=== PATIENT | female | born 1995 | race Hispanic/Latino ===

== ENCOUNTER 2016-04-25 21:34 | Emergency (ER) | payer OTHER ==
[~2016-04-25] VITALS: Ht 154.9 cm; Wt 68.2 kg
[~2016-04-25 21:34] MED LIST: CYCL5TAB PO; HYDR200T5 PO; LEVO1IUD IY; MYCO500T3 PO
[2016-04-25 21:38] VITALS: BP 129/87; PULSE 99; RESP 16; O2SAT 100
--- NOTE | 2016-04-26 01:00 | ED.REPORT ---
HPI-Sore Throat ONLY HPI/PE done Apr 26, 2016 ED Provider: Dr. Cyrus Bray The patient is a 20 year old female w/ a hx of lupus who presents to the ED due to sore throat onset two days ago. Pt states she had the chills, fever, body aches for several days so she took DayQuil at 1900 and began feeling burning in her mouth. She is conversing well, no swelling of tongue/throat or SOB. She denies dysuria, cough and diarrhea. She reports that her lupus is not currently under control. Pt received a a flu vaccine this year. There is no chance she is . Nursing Notes Stated Complaint: BURNING IN THROAT/POSS MEDICATION INTERACTION Chief Complaint: General Complaint Nursing Notes Reviewed: Yes Allergies: Coded Allergies: No Known Allergies (Verified , 04/25/16) Scheduled Amoxicillin/Clav K 875-125 mg (Augmentin 875-125 mg) 1 Each Tablet 1 TABLET PO BID Hydroxychloroquine Sulfate (Hydroxychloroquine Sulfate) 200 Mg Tablet 200 MG PO BID Mycophenolate Mofetil (Mycophenolate Mofetil) 500 Mg Tablet 500 MG PO BID Prednisone (PredniSONE) 20 Mg Tablet 20 MG PO TID Scheduled PRN Cyclobenzaprine (Cyclobenzaprine) 5 Mg Tablet 5 MG PO HS PRN PRN Spasm General Time Seen by MD: 00:59 Chief Complaint Sore throat Hx Obtained From: Patient Arrived By: Walk-in Onset Occurred: 2 days ago Symptom Duration: Since onset Location: : Soft palate Quality: Painful Severity: Current: Mild Recent Healthcare: No recent doctor visit, No recent hospitalization Similar Sx Previous: No Past Medical History Patient History: Family history: Cardiovascular disease Past Medical History Costochondritis Lupus Arthritis Past Surgical History denies Smoking History Never Smoker Social History Alcohol Use: "Social" Drug Use: Denies drug use Other Social History: Local resident Ambulatory Status Independent Review of Systems Constitutional: Reports: Chills, Fever, Malaise Ears / Nose / Throat: Reports: Sore throat, Denies: Throat swelling, Tongue swelling Respiratory: Denies: Non-productive cough, Shortness of breath GI: Denies: Diarrhea Complete sys rev & neg: except as marked. Female: Denies: Dysuria Physical Exam Initial Vital Signs Vital Signs (First) Date Time Temp Pulse Resp B/P Pulse Ox O2 Delivery O2 Flow Rate FiO2 04/25/16 21:38 36.7 99 16 129/87 100 Room Air Initial VS: Reviewed, Vital signs normal Head / Eyes: Atraumatic, Normocephalic, PERRL Respiratory: Breath sounds normal, Clear to auscultation, No respiratory distress Cardiovascular: Regular rate & rhythm, Heart sounds normal, Intact distal pulses Abdomen / GI: Soft, Non-tender, No guarding, No rebound, No distention Back: No CVA tenderness Extremities: Vascular intact, Neuro intact, No swelling, No tenderness Skin: Warm, Dry, No cyanosis Neurologic: Alert, Oriented, Nonfocal Psychiatric: Mood/affect normal, Behavior normal, Normal thought content General/Constitutional: Awake, Alert, No acute distress, Cooperative generalized pallor ENT: Airway patent, Mucous membranes moist soft palette cellulitis Soft Tissue Neck: Positive: Swelling present... (Anterior) anterior cervical lymphadenopathy Interpretation & Diagnostics Lab Results Interpretation Result Diagram: 04/26/16 0226 04/26/16 0226 Test 04/26/16 02:20 04/26/16 02:26 Hold Pena Top Tube Received (Received) White Blood Count 2.5th/mm3 (3.8-10.1) Red Blood Count 4.37mil/mm3 (3.90-5.20) Hemoglobin 10.8g/dL (12.0-15.6) Hematocrit 32.5% (35.0-46.0) Mean Corpuscular Volume 74.4fL (81-100) Mean Corpuscular Hemoglobin 24.7pg (27.0-35.0) Mean Corpuscular Hemoglobin Concent 33.2% (32.0-37.0) Red Cell Distribution Width 17.1% (12.3-15.4) Platelet Count 240bil/L (150-400) Neutrophils (%) (Auto) 69.1% (40-74) Lymphocytes (%) (Auto) 24.9% (14-46) Monocytes (%) (Auto) 4.0% (4-12) Eosinophils (%) (Auto) 1.6% (0-5) Basophils (%) (Auto) 0% (0-3) Sodium Level 134mEq/L (134-144) Potassium Level 4.1mEq/L (3.5-5.2) Chloride Level 98mEq/L (97-108) Carbon Dioxide Level 20mmol/L (18-29) Blood Urea Nitrogen 14mg/dL (6-20) Creatinine 0.54mg/dL (0.57-1.00) Estimat Glomerular Filtration Rate 202mL/min (>59) Glucose Level 103mg/dL (60-99) Calcium Level 8.3mg/dL (8.5-10.1) Total Bilirubin 0.3mg/dL (0.0-1.2) Aspartate Amino Transf (AST/SGOT) 17U/L (0-50) Alanine Aminotransferase (ALT/SGPT) 7U/L (0-32) Alkaline Phosphatase 48U/L (25-150) C-Reactive Protein 8.4mg/dL (0.0-0.5) Total Protein 6.8g/dL (6.4-8.4) Albumin 3.8g/dL (3.4-5.0) Lab Results Interpretation: Chronic anemia and chronic low WBC Re-Eval/Medical Decision Med Decision/Clinical Course 20-year-old female whose care was turned or change in shift. Influenza negative. Strep test negative. She was treated with steroids and antibiotics for peritonsillar cellulitis. Source of Hx: Old records Re-Evaluation/Progress : Time of Eval: 04:45 Patient Status: Condition improved Re-Evaluation/Progress Note: Care assumed by Dr. Kaiser. Discussed diagnosis and treatment plan. Patient understands and agrees with the plan to be discharged home. Discharge instructions and follow-up discussed. All questions were addressed. Return to the ED warnings given. Counseled Regarding: Diagnosis, Lab results, Need for follow-up, When/why to return to ED Discharge & Departure Primary Impression: Peritonsillar cellulitis Disposition: Home Discharge Condition All VS Reviewed: Yes Condition: Stable Patient Instructions: Tonsillitis (ED) Additional Instructions: Influenza negative. Strep negative. It appears that you have a tonsillitis and peritonsillar cellulitis. Augmentin 875, one pill twice daily until gone, # 14 dispensed. Prednisone 20 mg 3 times a day for 3 days, #9 prescription sent. Recommend no work today. Referrals: [facility] Scribe Attestation Portion of this note were transcribed by Ashely Barahona and Aneta Beckford. I, Dr. Bray and Dr. Kaiser, personally performed the history, physical exam, and medical decision-making: I reviewed and confirmed the accuracy for the information in the transcribed note. Signed by: Austin Mar, 04/26/2016 0300 Signed by: Austin Rendon, 04/26/2016 0455 Cyrus Bray DO Apr 26, 2016 01:00 Ashely Barahona Apr 26, 2016 01:57 Red Kaiser MD Apr 26, 2016 04:42 Aneta Beckford Apr 26, 2016 04:55
[2016-04-26] MEDS ORDERED: HYDROcodone-APAP 5-325 mg Tablet PO ONE (01:55)
[2016-04-26] MEDS ORDERED: 0.9% Sodium Chloride 1,000 ML IV ONE (01:55)
[2016-04-26] MEDS ORDERED: Dexamethasone Inj 10 MG in 0.9% Sodium Chloride-Pha MIX 50 ML IV ONE (01:55)
[2016-04-26 02:35] LABS: BASOPHILS % (AUTO) 0 % (0-3); EOSINOPHILS % (AUTO) 1.6 % (0-5); Mean Corpuscular Hemoglobin 24.7 pg (27.0-35.0); Mean Corpuscular Volume 74.4 fL (81-100); NEUTROPHILS % (AUTO) 69.1 % (40-74); Platelet Count 240 bil/L (150-400)
[2016-04-26 04:26] VITALS: BP 108/72; PULSE 102; RESP 15; O2SAT 98
[2016-04-26] MEDS ORDERED: AMOX-366 PO (04:44)
[2016-04-26] MEDS ORDERED: PRE20 PO (04:44)
[2016-04-26 04:54] VITALS: BP 108/72; PULSE 102; RESP 15; O2SAT 98
== END 2016-04-26 04:55 | disposition home or self-care (01) ==
LOC: SED 21:34
DX: J36 Peritonsillar abscess (principal); B99.8 Other infectious disease; M32.9 Systemic lupus erythematosus, unspecified
CPT/HCPCS: 36415; 80053; 85025; 86140; 87804; 87880; 96361; 96374; 99284; J1100; J7030

== ENCOUNTER 2016-06-28 16:53 | Inpatient (IN) | payer OTHER ==
[~2016-06-28] VITALS: Ht 154.9 cm; Wt 68.4 kg
[~2016-06-28 16:53] MED LIST changes: +AMOX-366 PO; +PRE20 PO
[2016-06-28 16:55] VITALS: BP 131/83; PULSE 118; RESP 16; O2SAT 100
--- NOTE | 2016-06-28 19:03 | ED.REPORT ---
HPI-Abd Pain F Under 40 Date of Service June 28, 2016 ED Provider: Dr. Cyrus Bray The patient is a 20 year old female w/ a hx of lupus who presents to the ED from Urgent Care due to intermittent epigastric pain for the past two weeks. She is not currently having any pain at the ED. UC measured a temp of 102F and she claims a subjective fever for the past 2 days. She denies dysuria, sore throat, vomiting, and diarrhea. She takes folic acid, methotrexate, and prednisone for her lupus. Nursing Notes Stated Complaint: PAIN Chief Complaint: Female Abdominal Pain Nursing Notes Reviewed: Yes Allergies: Coded Allergies: No Known Allergies (Verified , 06/28/16) Scheduled Folic Acid (Folic Acid) 1 Mg Tablet 1 MG PO DAILY Hydroxychloroquine Sulfate (Hydroxychloroquine Sulfate) 200 Mg Tablet 200 MG PO DAILY Meloxicam (Meloxicam) 15 Mg Tablet 15 MG PO DAILY Methotrexate Sodium (Methotrexate) 2.5 Mg Tablet 8 TABLET PO monday take 4 in the morning and 4 in the evening Mycophenolate Mofetil (Mycophenolate Mofetil) 500 Mg Tablet 500 MG PO BID Prednisone (PredniSONE) 5 Mg Tab 5 MG PO DAILY General Time Seen by MD: 19:02 Chief Complaint Abdominal pain Hx Obtained From: Patient Arrived By: Walk-in Sudden in Onset?: Yes Onset Occurred: More than a week ago... (2 weeks) Symptom Duration: Since onset Location: : Abdomen upper Quality: Painful Recent Healthcare: No recent doctor visit, No recent hospitalization Similar Sx Previous: No Past Medical History Patient History: Family history: Cardiovascular disease Past Medical History Costochondritis Lupus Arthritis Past Surgical History denies Smoking History Never Smoker Social History Alcohol Use: "Social" Drug Use: Denies drug use Other Social History: Local resident Ambulatory Status Independent Review of Systems Constitutional: Reports: Fever GI: Reports: Abdominal pain, Denies: Diarrhea, Vomiting Female: Denies: Dysuria Complete sys rev & neg: except as marked. Ears / Nose / Throat: Denies: Sore throat Physical Exam Initial Vital Signs Vital Signs (First) Date Time Temp Pulse Resp B/P Pulse Ox O2 Delivery O2 Flow Rate FiO2 06/28/16 16:55 36.9 118 16 131/83 100 Room Air Initial VS: Reviewed Head / Eyes: Atraumatic, Normocephalic, PERRL ENT: Mucous membranes moist, Conjunctiva normal Neck: Supple, Non-tender Extremities: Vascular intact, Neuro intact, No swelling Skin: Warm, Dry General/Constitutional: Awake, Alert, Cooperative Respiratory / Chest: Atraumatic, Breath sounds NL, Breath sounds = bilat Cardiovascular: Heart rate NL, Regular rhythm, Heart sounds NL Abdomen: No rebound diffuse midline tenderness Back: Atraumatic, Inspection NL Interpretation & Diagnostics Lab Results Interpretation Result Diagram: 06/28/16193906/28/161939 Test 06/28/16 19:40 06/28/16 21:23 06/29/16 00:45 White Blood Count 4.8th/mm3 (3.8-10.1) Red Blood Count 4.41mil/mm3 (3.90-5.20) Hemoglobin 12.3g/dL (12.0-15.6) Hematocrit 35.4% (35.0-46.0) Mean Corpuscular Volume 80.3fL (81-100) Mean Corpuscular Hemoglobin 27.9pg (27.0-35.0) Mean Corpuscular Hemoglobin Concent 34.7% (32.0-37.0) Red Cell Distribution Width 16.9% (12.3-15.4) Platelet Count 216bil/L (150-400) Neutrophils (%) (Auto) 82.9% (40-74) Lymphocytes (%) (Auto) 12.3% (14-46) Monocytes (%) (Auto) 4.2% (4-12) Eosinophils (%) (Auto) 0.2% (0-5) Basophils (%) (Auto) 0.2% (0-3) Sodium Level 136mEq/L (134-144) Potassium Level 4.2mEq/L (3.5-5.2) Chloride Level 98mEq/L (97-108) Carbon Dioxide Level 20mmol/L (18-29) Blood Urea Nitrogen 13mg/dL (6-20) Creatinine 0.55mg/dL (0.57-1.00) Estimat Glomerular Filtration Rate 198mL/min (>59) Glucose Level 73mg/dL (60-99) Lactic Acid Level 1.2mmol/L (0.4-2.0) Calcium Level 8.8mg/dL (8.5-10.1) Magnesium Level 1.8mg/dL (1.6-2.6) Total Bilirubin 0.6mg/dL (0.0-1.2) Aspartate Amino Transf (AST/SGOT) 30U/L (0-50) Alanine Aminotransferase (ALT/SGPT) 23U/L (0-32) Alkaline Phosphatase 58U/L (25-150) Total Protein 7.2g/dL (6.4-8.4) Albumin 3.9g/dL (3.4-5.0) Lipase 19U/L (13-60) HCG Beta Subunit < 0.500mIU/mL Hold Pena Top Tube Received (Received) Urine Color Yellow (YELLOW) Urine Appearance Clear (CLEAR,HAZY) Urine pH 5.5 (5.0-8.0) Urine Specific [place] 1.025 (1.003-1.035) Urine Protein Negativemg/dL (NEG,TRACE) Urine Glucose (UA) Negativemg/dL (NEGATIVE) Urine Ketones 15mg/dL (NEGATIVE) Urine Occult Blood Negative (NEGATIVE) Urine Nitrite Negative (NEGATIVE) Urine Bilirubin Negative (NEGATIVE) Urine Urobilinogen Normalmg/dL (NORMAL) Urine Leukocyte Esterase Negative (NEGATIVE) Urine RBC 0-2/hpf (0-2) Urine WBC 0-5/hpf (0-5) Urine Epithelial Cells Few/hpf (NONE-MOD) Urine Crystals None seen (NONE SEEN) Urine Bacteria Few/hpf (NONE-FEW) Urine Hyaline Casts None/lpf (NONE) Urine Granular Casts None seen (NONE SEEN) Urine Waxy Casts None seen (NONE SEEN) Urine Red Blood Cell Casts None seen (NONE SEEN) Urine White Blood Cell Casts None seen (NONE SEEN) Urine Mucus Present (None Seen) Urine Trichomonas None seen (NONE SEEN) Urine Yeast None (NONE SEEN) Urinalysis Comment None Urine Culture Reflexed Not indicated Lab Results Interpretation: negative urine Re-Eval/Medical Decision Re-Evaluation/Progress #1: Time of Eval: 19:46 Re-Evaluation/Progress Note: Plan for fluids, pain meds, and catscan. Re-Evaluation/Progress #2: Time of Eval: 23:30 Re-Evaluation/Progress Note: Pt rechecked. Fever is 39.5C. Pt is tachycardic and has midline tenderness. Plan for admission. Consultation #1: Referral / Consult Name: Willi Soriano MD Consulted With: Hospitalist Call Returned at: 23:30 Community Resource Consultant: Agrees with eval, Agrees with plan Note: Case discussed. Consultation #2: Referral / Consult Name: Donte Sanchez MD Consulted With: Hospitalist Call Returned at: 23:41 Community Resource Consultant: Agrees with eval, Agrees with plan Note: Case discussed. Counseled Regarding: Diagnosis, Lab results, Need for admission Discharge & Departure Primary Impression: Abdominal mass Abdominal location: epigastric Qualified Code: R19.06 - Epigastric swelling , mass or lump Additional Impression: Fever Fever type: unspecified Qualified Code: R50.9 - Fever, unspecified Disposition: ADMITTED TO HOSPITAL Discharge Condition All VS Reviewed: Yes Condition: Stable Referrals: Helga Cleaning (PCP) Rachelibbassam Attestation Portion of this note were transcribed by Ashely Barahona. I, Dr. Cyrus Bray, personally performed the history, physical exam, and medical decision-making: I reviewed and confirmed the accuracy for the information in the transcribed note. Signed by: antwon Mar, 06/29/16 0300 copies to: Helga Cleaning Todd P DO June 28, 2016 19:03 Ashely Barahona June 28, 2016 19:50
[2016-06-28] MEDS ORDERED: 0.9% Sodium Chloride 1,000 ML IV ONE (19:50)
[2016-06-28] MEDS ORDERED: Ondansetron 2 mg/mL 2 mL Inj IVPUSH PRN (19:50)
[2016-06-28 19:56] LABS: BASOPHILS % (AUTO) 0.2 % (0-3); EOSINOPHILS % (AUTO) 0.2 % (0-5); MONOCYTES % (AUTO) 4.2 % (4-12); Mean Corpuscular Hemoglobin 27.9 pg (27.0-35.0); Mean Corpuscular Volume 80.3 fL (81-100); NEUTROPHILS % (AUTO) 82.9 % (40-74); Platelet Count 216 bil/L (150-400)
[2016-06-28] MEDS: HYDROmorphone 0.5 mg/0.5 mL iSecure Syringe IVPUSH PRN (20:35)
[2016-06-28 20:40] LABS: Magnesium 1.8 mg/dL (1.6-2.6)
[2016-06-28 21:40] VITALS: BP 117/81; PULSE 111; RESP 16; O2SAT 100
[2016-06-28 21:40] LABS: APPEARANCE,URINE CLEAR (CLEAR,HAZY); COLOR,URINE YELLOW (YELLOW); OCCULT BLOOD,URINE NEGATIVE (NEGATIVE); PH,URINE 5.5 (5.0-8.0); UROBILINOGEN,URINE NORMAL (NORMAL)
[2016-06-28] MEDS ORDERED: Piperacillin-Tazo 3.375 Gm Inj 3.375 GM in Dextrose 5% Minibag Plus 50 ML IV ONE (23:10)
[2016-06-29] MEDS: 0.9% Sodium Chloride 1,000 ML IV SCH ×2 (00:34→12:22)
[2016-06-29] MEDS ORDERED: Alum-Mag Hydrox-Simeth 30 mL Suspension PO PRN (00:35)
[2016-06-29] MEDS ORDERED: Polyethylene Glycol (PEG) 17 Gm Powder PO PRN (00:35)
--- NOTE | 2016-06-29 00:55 | PCM.HPMED ---
Subjective Date of Service June 29, 2016 Primary Provider: Admitting Physician: Primary Care Physician: Helga Cleaning Attending Physician: Admit Status: From the Emergency Department, Full Admit, Remote Telemetry Chief Complaint: Abdominal pain History of Present Illness: Dede Garza is a 20 year old female with Lupus, Fibromyalgia and Depression who presents to [facility] emergency department from Urgent Care due to intermittent epigastric pain for the past two weeks. Patient reported the epigastric pain (with extension to right and left upper quadrant area) severity is moderate 3/10 intensity, intermittent and non radiating. Associated symptoms includes fever on Monday, yesterday and 102F ( at Urgent Care clinic), back pain (middle of her back hurts but states she believes is from sitting all day at her job) and some nausea. No diarrhea or vomiting. Denies vaginal discharge, vaginal bleeding, dysuria, urinary frequency. She denies any weight loss. Patient states she saw her family doctor on 06/21/2016 and an outpatient ultrasound is being ordered however it has not been scheduled yet. She denies dysuria, sore throat, vomiting, and diarrhea. She takes folic acid, methotrexate, prednisone for her lupus and has been tolerating this medications for a long time No family history of cancer or pancreatis disease Case discussed with Dr Bray, CT finds pancreatic mass. He discussed the case with Dr Soriano and Dr Barton. Plan to admit Review of Systems: Pertinent positives as noted in HPI. All other systems were reviewed and are negative Allergies Coded Allergies: No Known Allergies (Verified , 06/28/16) Home Medications From [facility], not yet confirmed Dede Garza [id number] 1995 06/28/2016 03:40 PM 02/24 folic acid 1 mg tablet take 1 tablet by oral route every day hydroxychloroquine 200 mg tablet take 2 tablet by oral route every day methotrexate sodium 2.5 mg tablet take 8 pills orally (4 in the am and 4 in the pm) one day a week Mirena 20 mcg/24 hr (5 years) intrauterine device Mobic Oral Tablet 15 MG TAKE ONE TABLET BY MOUTH ONE TIME DAILY -DO NOT TAKE WITH OTHER NSAIDS Myfortic 360 mg tablet,delayed release take 2 tablet by oral route every day on an empty stomach prednisone 2.5 mg tablet take 2 tablets by oral route every day PMH Systemic Lupus Erythematosus. Diagnosed at [facility] age 9. Complicated with joint and muscular pain and Shrinking lung syndrome, Raynaud's and recurrent pericarditis Fibromyalgia Paronychia of fingers of both hands Cellulitis of left finger Depression History of Shingles . Surgical History No surgery reported Family History Aunt has Lupus Family history of Diabetes and Heart disease Social History Hx Alcohol Use: No Hx Substance Use: No Hx Tobacco Use: No Smoking Status: Never Smoker Living Arrangement: with Family Exam Vital Signs Vital Sign - Last Date Time Temp Pulse Resp B/P Pulse Ox O2 Delivery O2 Flow Rate FiO2 06/29/16 00:42 39.5 06/28/16 21:40 111 16 117/81 100 Room Air Exam General: Alert, Oriented X3, Cooperative, No acute Distress Eyes: PERRLA, Scleral Anicteric Mouth: Mouth Normal, Mucous Membranes Moist/[place] Neck: Supple, no Thyromegaly, trachea central. Chest & Lungs: Clear to auscultation & percussion, No adventitious breath sounds, no crackles, no wheeze Cardiovascular: Normal S1, Normal S2, No Murmurs/Rubs/Gallops, Regular Rate/ Rhythm, Murmur, Other (No JVD, no peripheral edema) Pulses: Radial (present and equal), Dorsalis Pedi (present and equal) Abdomen: Soft, mild epigastric tenderness, no rebound, Non-distended, Normoactive bowel tones. Musculoskeletal: Unremarkable. Normal range of motion, no swollen or erythematous joints Extremities: No edema, no cyanosis, no clubbing. Skin: No rashes. Warm and dry, no erythematous areas Neurological: Grossly neurologically intact, has generalized weakness, Normal Speech, Sensation Intact Lymphatic: Lymph nodes Cervical and Axillary not palpable. Lab and Diagnostics Labs Laboratory Tests Test 06/28/16 19:40 06/28/16 21:23 White Blood Count 4.8th/mm3 (3.8-10.1) Red Blood Count 4.41mil/mm3 (3.90-5.20) Hemoglobin 12.3g/dL (12.0-15.6) Hematocrit 35.4% (35.0-46.0) Mean Corpuscular Volume 80.3fL (81-100) Mean Corpuscular Hemoglobin 27.9pg (27.0-35.0) Mean Corpuscular Hemoglobin Concent 34.7% (32.0-37.0) Red Cell Distribution Width 16.9% (12.3-15.4) Platelet Count 216bil/L (150-400) Neutrophils (%) (Auto) 82.9% (40-74) Lymphocytes (%) (Auto) 12.3% (14-46) Monocytes (%) (Auto) 4.2% (4-12) Eosinophils (%) (Auto) 0.2% (0-5) Basophils (%) (Auto) 0.2% (0-3) Sodium Level 136mEq/L (134-144) Potassium Level 4.2mEq/L (3.5-5.2) Chloride Level 98mEq/L (97-108) Carbon Dioxide Level 20mmol/L (18-29) Blood Urea Nitrogen 13mg/dL (6-20) Creatinine 0.55mg/dL (0.57-1.00) Estimat Glomerular Filtration Rate 198mL/min (>59) Glucose Level 73mg/dL (60-99) Lactic Acid Level 1.2mmol/L (0.4-2.0) Calcium Level 8.8mg/dL (8.5-10.1) Magnesium Level 1.8mg/dL (1.6-2.6) Total Bilirubin 0.6mg/dL (0.0-1.2) Aspartate Amino Transf (AST/SGOT) 30U/L (0-50) Alanine Aminotransferase (ALT/SGPT) 23U/L (0-32) Alkaline Phosphatase 58U/L (25-150) Total Protein 7.2g/dL (6.4-8.4) Albumin 3.9g/dL (3.4-5.0) Lipase 19U/L (13-60) HCG Beta Subunit < 0.500mIU/mL Hold Pena Top Tube Received (Received) Urine Color Yellow (YELLOW) Urine Appearance Clear (CLEAR,HAZY) Urine pH 5.5 (5.0-8.0) Urine Specific [place] 1.025 (1.003-1.035) Urine Protein Negativemg/dL (NEG,TRACE) Urine Glucose (UA) Negativemg/dL (NEGATIVE) Urine Ketones 15mg/dL (NEGATIVE) Urine Occult Blood Negative (NEGATIVE) Urine Nitrite Negative (NEGATIVE) Urine Bilirubin Negative (NEGATIVE) Urine Urobilinogen Normalmg/dL (NORMAL) Urine Leukocyte Esterase Negative (NEGATIVE) Urine RBC 0-2/hpf (0-2) Urine WBC 0-5/hpf (0-5) Urine Epithelial Cells Few/hpf (NONE-MOD) Urine Crystals None seen (NONE SEEN) Urine Bacteria Few/hpf (NONE-FEW) Urine Hyaline Casts None/lpf (NONE) Urine Granular Casts None seen (NONE SEEN) Urine Waxy Casts None seen (NONE SEEN) Urine Red Blood Cell Casts None seen (NONE SEEN) Urine White Blood Cell Casts None seen (NONE SEEN) Urine Mucus Present (None Seen) Urine Trichomonas None seen (NONE SEEN) Urine Yeast None (NONE SEEN) Urinalysis Comment None Urine Culture Reflexed Not indicated Microbiology 06/28/16 Blood Culture, Received Pending Result Diagram: 06/28/16193906/28/161939 X-Rays, CTs and MRIs CT ABDOMEN AND PELVIS WITH CONTRAST 06/29 IMPRESSION: 1. Mass in the mesenteric root measuring 3.6 x 5.1 x 4.6 cm. Differential diagnoses include a large irish mass, carcinoid tumor, and less likely tumor involving the uncinate process of pancreas. 2. Retroperitoneal and mesenteric lymphadenopathy. This finding is nonspecific and may be secondary to infectious, inflammatory or neoplastic etiology. Recommend clinical correlation and follow up. Dictated by: Alon Lane M.D. on 06/29/2016 at 7:23 Transcribed by: LISA on 06/29/2016 at 7:26 Approved by: Alon Lane M.D. on 06/29/2016 at 13:11 Assessment & Plan Dede Garza is a 20 year old female with Lupus, Fibromyalgia and Depression who presents to [facility] emergency department from Urgent Care due to intermittent epigastric pain 1. Acute abdominal pain. Present on admission CT showing Mass in the mesenteric root measuring 3.6 x 5.1 x 4.6 cm. Etiology unclear. No colitis noted. Unclear if this is related to Lupus. Differential diagnoses include a large irish mass, carcinoid tumor, and less likely tumor involving the uncinate process of pancreas. - nothing by mouth - IV fluids resuscitations - empiric antibiotics with Zosyn IV - Ultrasound biopsy recommended by surgery, Dr Barton notified - Dr Soriano will consult from surgery 2 Systemic Lupus Erythematosus Presumed stable with no current joint or muscle pain - will continue Prednisone 5 mg daily, no indications for Stress dose steroids as chronic steroid dose is small - continue Folic acid 1 mg daily - holding all Autoimmune medications (Hydroxychloroquine and Methotrexate) till infections is stabilized - will use NSAID for pain control 3. Fibromyalgia and Depression Presumed stable - Acetaminophen as needed for mild pain/fever/headache - Bowel regimen as needed - Antiemetic as needed Patient admitted under inpatient status with expected length of stay > 2 midnights for severity of present symptoms, complexities of treatment plan and risk for adverse event . Resuscitation Status: CPR: Attempt Resuscitation Donte Sanchez MD June 29, 2016 00:55
[2016-06-29] MEDS: HYDROmorphone 0.5 mg/0.5 mL iSecure Syringe IVPUSH PRN ×2 (02:19→14:09)
[2016-06-29 03:15] VITALS: BP 113/70; PULSE 115; RESP 20; O2SAT 98
--- NOTE | 2016-06-29 03:23 | NUR ---
ADMIT Patient with continuing abdominal pain and fever, decreased with dilaudid and tylenol. Awaiting room on regular med-surg floor. Oriented to her current room and call light. Sleeping comfortably at this time.
[2016-06-29] MEDS: Ondansetron 2 mg/mL 2 mL Inj IVPUSH PRN ×2 (05:35→14:09)
[2016-06-29] MEDS ORDERED: PRD5T PO (07:06)
[2016-06-29] MEDS ORDERED: FOLI1TAB18 PO (07:07)
[2016-06-29] MEDS ORDERED: MELO-253 PO (07:07)
[2016-06-29] MEDS ORDERED: METH2.5T PO (07:08)
--- NOTE | 2016-06-29 07:26 | DRSVH ---
PROCEDURE: CT ABDOMEN AND PELVIS WITH CONTRAST ([id number]) INDICATIONS: 20 year-old woman with midline abdominal pain, lupus and fever. TECHNIQUE: After the administration of intravenous contrast, 5 mm thick sections acquired from the diaphragm to the symphysis. 5 mm coronal and sagittal reformats were acquired. For radiation dose reduction, the following was used: automated exposure control, adjustment of mA and/or kV according to patient siz e. COMPARISON: None. FINDINGS: Image quality: Excellent. ABDOMEN: Lung bases: Lung bases are clear. Heart size is normal. Solid organs: There is a mass within the mesenteric root measuring 3.6 x 5.1 x 4.6 cm. The mass is j ust below the uncinate process of pancreas. Central lucency within the mass suggesting necrosis. Liver and spleen are normal in size and enhancement. Gallbladder is normal. Biliary system is non d ilated. Pancreas enhances normally. No adrenal nodules. Kidneys demonstrate normal size and enhanc ement, without hydronephrosis. Peritoneum and bowel: Bowel loops demonstrate normal wall thickness and caliber. No free fluid or a ir. Nodes and vessels: There are 2 enlarged retroperitoneal lymph nodes measuring up to 1.5 cm. Mildly en larged mesenteric lymph nodes are noted, measuring up to 1 cm. Aorta and inferior vena cava are norm al in size. Miscellaneous: No ventral hernias. PELVIS: Genitourinary: Bladder wall thickness is normal. There is an IUD in uterus. No pathological free fl uid. Miscellaneous: No inguinal hernias or adenopathy. Bones: No suspicious bony lesions. No vertebral body compression fractures. IMPRESSION: 1. Mass in the mesenteric root measuring 3.6 x 5.1 x 4.6 cm. Differential diagnoses include a large n odal mass, carcinoid tumor, and less likely tumor involving the uncinate process of pancreas. 2. Retroperitoneal and mesenteric lymphadenopathy. This finding is nonspecific and may be secondary to infectious, inflammatory or neoplastic etiology. Recommend clinical correlation and follow up. Dictated by: Alon Lane M.D. on 06/29/2016 at 7:23 Transcribed by: LISA on 06/29/2016 at 7:26 Approved by: Alon Lane M.D. on 06/29/2016 at 13:11
[2016-06-29 07:57] VITALS: BP 112/66; PULSE 79; RESP 16; O2SAT 100
[2016-06-29] MEDS: Piperacillin-Tazo 3.375 Gm Inj 3.375 GM in Dextrose 5% Minibag Plus 50 ML IV SCH ×2 (08:03→15:59)
[2016-06-29] MEDS: Heparin 5,000 Unit/mL Inj SUBQ SCH ×2 (08:04→16:30)
--- NOTE | 2016-06-29 09:21 | NUR ---
Social Work Note - Initial assessment Dede Garza is a 20 yr old admitted for mesenteric abdominal mass with Fever. EMR reviewed: Pt has [employer] and [employer] insurance. Her PCP is Helga JUNG. Pt lives at home with her family in [place]. She struggles with Lupus and Fibromyalgia. She is independent at baseline, no needs anticipated. FRONT CLERK will follow if needs arise. Plan: Home with family in [facility]. SABAS Calvillo
[2016-06-29 11:47] VITALS: BP 119/80; PULSE 87; RESP 16; O2SAT 100
--- NOTE | 2016-06-29 11:49 | PCM.CHPMED ---
Subjective Date of Service: June 29, 2016 Primary Physician: Admitting Physician: Donte Sanchez MD Primary Care Physician: Helga Cleaning Attending Physician: Donte Sanchez MD Chief Complaint: Chief Complaint: Abdominal pain History of Present Illness: 20-year-old female with lupus, fibromyalgia, and pression on hydroxychloroquine , methotrexate, mycophenolate, and prednisone presented due to ongoing abdominal pain in the epigastrium with extension to the right and left upper quadrants. Patient states that it is 3 out of 10 intensity but has resolved since first presentation, is intermittent, and does not radiate. Patient states it starts more on her left upper quadrant and spread to her epigastrium to the right with epigastrium been most painful. Patient states on Monday and Monday she had a fever up to 102 measured at urgent care, as well as nausea with no vomiting. Patient states now that her nausea is resolved. States that pain is exacerbated or remitted with oral intake. Denies any change in bowel habits and denies melena or hematochezia, as well as hematemesis. Patient denies any contact with tuberculosis, denies night sweats or unexpected/ unexplained weight loss. Other signs of systemic infection are also absent. Has been no change in her recent immunosuppression medications. In the ED patient underwent CT with contrast which identified a mass likely in the pancreatic head is approximately 5 cm in width, with some possible chronic inflammatory changes in the pancreas. Patient was started on Zosyn due to fevers and questionable pancreatic head abscess. Review of Systems: See history of present illness PMH Past Medical History Lupus Depression Hx Any Other Health Problems?: NoHx Diabetes: No Surgical History None reported Home Medications Folic acid Hydroxychloroquine 200 mg tablets, take 2 daily Methotrexate 2.5 mg tablets, 4 pills in the a.m. and p.m. Abigail Mobic Myfortic 360 mg tablet Prednisone 2.5 mg Allergies: Coded Allergies: No Known Allergies (Verified , 06/28/16) Family History Family History Aunt has Lupus Family history of Diabetes and Heart disease No history of cancer Social History Hx Alcohol Use: NoHx Substance Use: NoHx Tobacco Use: No Smoking Status: Never Smoker Living Arrangement: with Family Exam Vital Signs Vital Sign - Last Date Time Temp Pulse Resp B/P Pulse Ox O2 Delivery O2 Flow Rate FiO2 06/29/16 07:57 36.9 79 16 112/66 100 Room Air Additional Information: General: Patient awake alert in no acute distress HEENT: His membranes moist, oropharynx clear, no JVD, supple Cardio: Regular rate and rhythm Respiratory: CTA bilaterally Abdomen: Mildly obese, nondistended, none tender except mild tenderness in the epigastrium, positive bowel sounds no masses palpated Extremities: No edema, moving all 4 extremities, pulses intact Psych: Appropriate mood and appears mildly depressed Neuro: Grossly intact Skin: No rashes Lab and Diagnostics Result Diagram: 06/28/16193906/28/161939 Assessment & Plan Assessment Problem list Intra-abdominal mass, likely in the uncinate process of the pancreas Intermittent abdominal pain Lupus Depression Assessment/plan 18-year-old female with lupus on multiple immunosuppressants who presented with abdominal pain and was found have a 5 cm mass in what looks like the uncinate process of the pancreas with surrounding lymphadenopathy in the mesenteric and retroperitoneal lymph nodes. Patient's nausea has remitted since arrival and her pain is now controlled. This mass raises concerns due to ongoing fevers and chills that this could possibly be a pancreatic abscess. However, on review of imaging with radiology is still difficult to classify the mass. Concern for pancreatic cancer, lymphoma, or a number of other etiologies, although most of these would be less likely due to patient's age.. Currently we feel the patient will need an endoscopic ultrasound and current discussion with interventional radiology on the ability to obtain a biopsy core sample of the mass. We are also concerned that this patient may need a higher level of care and decision will be made appropriately by the end of the day and whether this patient can be transferred. In the meantime we will continue to follow along with you. Thank you for allowing us to participate in the care of this interesting patient. Problems: Resuscitation Status: CPR: Attempt Resuscitation Attending Statement Patient seen and examined. Agree with assessment and plan as described by Dr Upton. Large mesenteric mass near uncinate process. Fevers overnight. IgG subclass 4 pending. I discussed case with Dr Sam Levine at [facility] with reference to EUS for diagnostic and therapeutic purposes. He agreed that transfer was appropriate and patient is to go this afternoon. In the interim, agree with continued antibiotic. Rene Upton DO June 29, 2016 11:49 Arik Barton MD June 29, 2016 15:53
--- NOTE | 2016-06-29 12:45 | DRSVH ---
PROCEDURE: X-RAY CHEST ONE VIEW, PORTABLE ([id number]) INDICATIONS: fever TECHNIQUE: One view of the chest was acquired. COMPARISON: [facility], CR, CHEST 2VW, 01/21/2014, 14:41. [facility], CR, CHEST 1VW (PORTABLE), 04/06/2008, 14:32. FINDINGS: Surgical changes and devices: None. Lungs and pleura: No pleural effusions or pneumothorax. Lungs are clear. Mediastinum: Mediastinal contours appear normal. Heart size is normal. Bones and chest wall: No suspicious bony lesions. Overlying soft tissues appear unremarkable. IMPRESSION: No acute cardiopulmonary disease. Dictated by: Sawyer PHAN Interpreted: Dorothy Begum MD on 06/29/2016 at 12:45 Transcribed by: INDIA on 06/29/2016 at 12:45 Approved by: Dorothy Begum M.D. on 06/29/2016 at 16:48
--- NOTE | 2016-06-29 13:49 | PCM.DIMED ---
Discharge Instructions Date of Service June 29, 2016 Dates of Hospitalization June 29, 2016 at 00:47 Discharge Diagnosis Discharge Diagnosis 1. Acute abdominal pain due to suspected mesenteric collection. Present on admission 2 Systemic Lupus Erythematosus 3. Fibromyalgia and Depression Test Results CT IMPRESSION: 1. Mass in the mesenteric root measuring 3.6 x 5.1 x 4.6 cm. Differential diagnoses include a large irish mass, carcinoid tumor, and less likely tumor involving the uncinate process of pancreas. 2. Retroperitoneal and mesenteric lymphadenopathy. This finding is nonspecific and may be secondary to infectious, inflammatory or neoplastic etiology. Recommend clinical correlation and follow up. Dictated by: Alon Lane M.D. on 06/29/2016 at 7:23 Diet Other (clear liquid diet for now) Activity Limited until seen by PCP Call your provider Other (transferred to ) Patient Instructions You were hospitalized due to abdominal pain and fever. Workup reveals mesenteric mass versus collection. You are being transferred to [facility] for endoscopic ultrasound and possible drainage versus biopsy based on findings. Please follow-up with PCP 1 week after discharge from hospital. Follow-up Provider: Salima Cleaning Follow-up with PCP in: 1 week Donnie Andrade MD June 29, 2016 13:49
--- NOTE | 2016-06-29 14:02 | NUR ---
Social Work-discharge: Data:EMR Reviewed. Pt is on day 1 of hospitalization for mesenteric abd mass per h&P. Pt is medically stable for discharge. Pt resides at home with family, no discharge needs identified. Family to provide transport home. All updated and agreeable to plan. Assessment:Pt who is independent at baseline. Plan:Pt to discharge home today via POV. No discharge needs identified. All updated and agreeable to plan. DEJUAN Plascencia
[2016-06-29 15:36] VITALS: BP 120/75; PULSE 114; RESP 18; O2SAT 99
--- NOTE | 2016-06-29 16:47 | NUR ---
Discharge pt. dc'd to [facility] via [facility] at 1640 this afternoon. Pt. febrile 39.3; given 650 mg po tylenol; emt's to follow up; tyson receiving RN at [facility] notified. Pt. c/o increased abd pain and nausea; prn dilaudid and zofran given with relief. belongings with pt.
--- NOTE | 2016-06-29 17:24 | PCM.DC.MED ---
Discharge Summary Date of Service June 29, 2016 Dates of Hospitalization Date of Hospital Admission June 29, 2016 at 00:47 Date of Discharge: June 29, 2016 Providers: Admitting Physician: Donte Sanchez MD Primary Care Physician: Helga Cleaning Attending Physician: Donte Sanchez MD Diagnosis at Time of Discharge Diagnosis at Time of Discharge 1. Acute abdominal pain due to suspected mesenteric collection. Present on admission 2 Systemic Lupus Erythematosus 3. Fibromyalgia and Depression Consultations GI Dr Barton Procedures ECG 12 Lead PROCEDURE: CT ABDOMEN AND PELVIS WITH CONTRAST ([id number]) INDICATIONS: 20 year-old woman with midline abdominal pain, lupus and fever. TECHNIQUE: After the administration of intravenous contrast, 5 mm thick sections acquired from the diaphragm to the symphysis. 5 mm coronal and sagittal reformats were acquired. For radiation dose reduction, the following was used: automated exposure control, adjustment of mA and/or kV according to patient size. COMPARISON: None. FINDINGS: Image quality: Excellent. ABDOMEN: Lung bases: Lung bases are clear. Heart size is normal. Solid organs: There is a mass within the mesenteric root measuring 3.6 x 5.1 x 4.6 cm. The mass is just below the uncinate process of pancreas. Central lucency within the mass suggesting necrosis. Liver and spleen are normal in size and enhancement. Gallbladder is normal. Biliary system is non dilated. Pancreas enhances normally. No adrenal nodules. Kidneys demonstrate normal size and enhancement, without hydronephrosis. Peritoneum and bowel: Bowel loops demonstrate normal wall thickness and caliber. No free fluid or air. Nodes and vessels: There are 2 enlarged retroperitoneal lymph nodes measuring up to 1.5 cm. Mildly enlarged mesenteric lymph nodes are noted, measuring up to 1 cm. Aorta and inferior vena cava are normal in size. Miscellaneous: No ventral hernias. PELVIS: Genitourinary: Bladder wall thickness is normal. There is an IUD in uterus. No pathological free fluid. Miscellaneous: No inguinal hernias or adenopathy. Bones: No suspicious bony lesions. No vertebral body compression fractures. IMPRESSION: 1. Mass in the mesenteric root measuring 3.6 x 5.1 x 4.6 cm. Differential diagnoses include a large irish mass, carcinoid tumor, and less likely tumor involving the uncinate process of pancreas. 2. Retroperitoneal and mesenteric lymphadenopathy. This finding is nonspecific and may be secondary to infectious, inflammatory or neoplastic etiology. Recommend clinical correlation and follow up. Dictated by: Alon Lane M.D. on 06/29/2016 at 7:23 Brief History per HPI 20-year-old female with lupus, fibromyalgia, and pression on hydroxychloroquine , methotrexate, mycophenolate, and prednisone presented due to ongoing abdominal pain in the epigastrium with extension to the right and left upper quadrants. Patient states that it is 3 out of 10 intensity but has resolved since first presentation, is intermittent, and does not radiate. Patient states it starts more on her left upper quadrant and spread to her epigastrium to the right with epigastrium been most painful. Patient states on Monday and Monday she had a fever up to 102 measured at urgent care, as well as nausea with no vomiting. Patient states now that her nausea is resolved. States that pain is exacerbated or remitted with oral intake. Denies any change in bowel habits and denies melena or hematochezia, as well as hematemesis. Patient denies any contact with tuberculosis, denies night sweats or unexpected/ unexplained weight loss. Other signs of systemic infection are also absent. Has been no change in her recent immunosuppression medications. In the ED patient underwent CT with contrast which identified a mass likely in the pancreatic head is approximately 5 cm in width, with some possible chronic inflammatory changes in the pancreas. Patient was started on Zosyn due to fevers and questionable pancreatic head abscess. Hospital Course Dede Garza is a 20 year old female with Lupus, Fibromyalgia and Depression who presents to [facility] emergency department from Urgent Care due to intermittent epigastric pain 1. Acute abdominal pain and fever due to suspected mesenteric collection. Present on admission CT showing pancreatis mass versus mesenteric collection. Etiology unclear. No colitis noted. Unclear if this is related to Lupus - nothing by mouth - IV fluids resuscitations - empiric antibiotics with Zosyn IV - Ultrasound biopsy recommended by surgery, Dr Barton [facility] Patient will benefit from transfer to [facility] for endoscopic ultrasound and possible aspiration versus biopsy based on finding -Signed out to accepting hospitalist Dr. Gama Mcnair. Will transfer when bed is available 2 Systemic Lupus Erythematosus Presumed stable with no current joint or muscle pain - will continue Prednisone 5 mg daily, no indications for Stress dose steroids as chronic steroid dose is small - continue Folic acid 1 mg daily - held all Autoimmune medications (Hydroxychloroquine and Methotrexate) till infections is stabilized - will use NSAID for pain control 3. Fibromyalgia and Depression Presumed stable - Acetaminophen as needed for mild pain/fever/headache - Bowel regimen as needed - Antiemetic as needed Disposition: Transfer to [facility] for endoscopic ultrasound Exam Vital Signs (Last) Date Time Temp Pulse Resp B/P Pulse Ox O2 Delivery O2 Flow Rate FiO2 06/29/16 15:36 39.3 114 18 120/75 99 Room Air Exam General: Alert, Oriented X3, Cooperative, No acute Distress Eyes: PERRLA, Scleral Anicteric Mouth: Mouth Normal, Mucous Membranes Moist/[place] Neck: Supple, no Thyromegaly, trachea central. Chest & Lungs: Clear to auscultation & percussion, No adventitious breath sounds, no crackles, no wheeze Cardiovascular: Normal S1, Normal S2, No Murmurs/Rubs/Gallops, Regular Rate/ Rhythm, Murmur, Other (No JVD, no peripheral edema) Pulses: Radial (present and equal), Dorsalis Pedi (present and equal) Abdomen: Soft, mild epigastric tenderness, no rebound, Non-distended, Normoactive bowel tones. Musculoskeletal: Unremarkable. Normal range of motion, no swollen or erythematous joints Extremities: No edema, no cyanosis, no clubbing. Skin: No rashes. Warm and dry, no erythematous areas Neurological: Grossly neurologically intact, has generalized weakness, Normal Speech, Sensation Intact Lymphatic: Lymph nodes Cervical and Axillary not palpable. Test 06/28/16 19:40 06/28/16 21:23 06/29/16 00:45 06/29/16 12:56 White Blood Count 4.8th/mm3 (3.8-10.1) Red Blood Count 4.41mil/mm3 (3.90-5.20) Hemoglobin 12.3g/dL (12.0-15.6) Hematocrit 35.4% (35.0-46.0) Mean Corpuscular Volume 80.3fL (81-100) Mean Corpuscular Hemoglobin 27.9pg (27.0-35.0) Mean Corpuscular Hemoglobin Concent 34.7% (32.0-37.0) Red Cell Distribution Width 16.9% (12.3-15.4) Platelet Count 216bil/L (150-400) Neutrophils (%) (Auto) 82.9% (40-74) Lymphocytes (%) (Auto) 12.3% (14-46) Monocytes (%) (Auto) 4.2% (4-12) Eosinophils (%) (Auto) 0.2% (0-5) Basophils (%) (Auto) 0.2% (0-3) Sodium Level 136mEq/L (134-144) Potassium Level 4.2mEq/L (3.5-5.2) Chloride Level 98mEq/L (97-108) Carbon Dioxide Level 20mmol/L (18-29) Blood Urea Nitrogen 13mg/dL (6-20) Creatinine 0.55mg/dL (0.57-1.00) Estimat Glomerular Filtration Rate 198mL/min (>59) Glucose Level 73mg/dL (60-99) Lactic Acid Level 1.2mmol/L (0.4-2.0) Calcium Level 8.8mg/dL (8.5-10.1) Magnesium Level 1.8mg/dL (1.6-2.6) Total Bilirubin 0.6mg/dL (0.0-1.2) Aspartate Amino Transf (AST/SGOT) 30U/L (0-50) Alanine Aminotransferase (ALT/SGPT) 23U/L (0-32) Alkaline Phosphatase 58U/L (25-150) Total Protein 7.2g/dL (6.4-8.4) Albumin 3.9g/dL (3.4-5.0) Lipase 19U/L (13-60) HCG Beta Subunit < 0.500mIU/mL Hold Pena Top Tube Received (Received) Urine Color Yellow (YELLOW) Urine Appearance Clear (CLEAR,HAZY) Urine pH 5.5 (5.0-8.0) Urine Specific [place] 1.025 (1.003-1.035) Urine Protein Negativemg/dL (NEG,TRACE) Urine Glucose (UA) Negativemg/dL (NEGATIVE) Urine Ketones 15mg/dL (NEGATIVE) Urine Occult Blood Negative (NEGATIVE) Urine Nitrite Negative (NEGATIVE) Urine Bilirubin Negative (NEGATIVE) Urine Urobilinogen Normalmg/dL (NORMAL) Urine Leukocyte Esterase Negative (NEGATIVE) Urine RBC 0-2/hpf (0-2) Urine WBC 0-5/hpf (0-5) Urine Epithelial Cells Few/hpf (NONE-MOD) Urine Crystals None seen (NONE SEEN) Urine Bacteria Few/hpf (NONE-FEW) Urine Hyaline Casts None/lpf (NONE) Urine Granular Casts None seen (NONE SEEN) Urine Waxy Casts None seen (NONE SEEN) Urine Red Blood Cell Casts None seen (NONE SEEN) Urine White Blood Cell Casts None seen (NONE SEEN) Urine Mucus Present (None Seen) Urine Trichomonas None seen (NONE SEEN) Urine Yeast None (NONE SEEN) Urinalysis Comment None Urine Culture Reflexed Not indicated Erythrocyte Sedimentation Rate 37mm/hr (0-32) C-Reactive Protein 17.2mg/dL (0.0-0.5) Procalcitonin 0.25ng/mL (0.00-0.08) Discharge Medications Discharge Medications Folic Acid (Folic Acid) 1 Mg Tablet 1 MG PO DAILY (Reported) Hydroxychloroquine Sulfate (Hydroxychloroquine Sulfate) 200 Mg Tablet 200 MG PO DAILY (Reported) Meloxicam (Meloxicam) 15 Mg Tablet 15 MG PO DAILY (Reported) Methotrexate Sodium (Methotrexate) 2.5 Mg Tablet 8 TABLET PO monday (Reported ) take 4 in the morning and 4 in the evening Mycophenolate Mofetil (Mycophenolate Mofetil) 500 Mg Tablet 500 MG PO BID ( Reported) Prednisone (PredniSONE) 5 Mg Tab 5 MG PO DAILY (Reported) Durable Medical Equipment Levonorgestrel (Mirena) 1 Each Iud 1 MCG IY (Reported) (DME) Followup Plan Disposition: Transfer to [facility] for endoscopic ultrasound Discharge Diet: Other (clear liquid diet for now) Discharge Activity: Limited until seen by PCP Patient Instructions You were hospitalized due to abdominal pain and fever. Workup reveals mesenteric mass versus collection. You are being transferred to [facility] for endoscopic ultrasound and possible drainage versus biopsy based on findings. Please follow-up with PCP 1 week after discharge from hospital. Follow-up Provider: Salima Cleaning Follow-up with PCP in: 1 week Time spent 40 minutes coordinating transfer copies to: Salima Cleaning Melaku MD June 29, 2016 17:24
== END 2016-06-29 16:40 | DRG 392 ==
LOC: SED 16:53 → OFED 06-29 00:47 → MOC 06-29 09:55
PROVIDERS: ADMIT Hospitalist; ATTEND Hospitalist
DX: R19.09 Other intra-abdominal and pelvic swelling, mass and lump (principal); R50.9 Fever, unspecified; M32.9 Systemic lupus erythematosus, unspecified; M79.7 Fibromyalgia; F32.9 Major depressive disorder, single episode, unspecified

== ENCOUNTER 2016-08-01 18:15 | Emergency (ER) | payer OTHER, MEDICAID ==
[~2016-08-01] VITALS: Ht 154.9 cm; Wt 68.2 kg
[~2016-08-01 18:15] MED LIST changes: -AMOX-366 PO; -CYCL5TAB PO; +FOLI1TAB18 PO; +MELO-253 PO; +METH2.5T PO; +PRD5T PO; -PRE20 PO
[2016-08-01 18:19] VITALS: BP 139/92; PULSE 111; RESP 17; O2SAT 98
[2016-08-01 19:06] LABS: Mean Corpuscular Hemoglobin 28.8 pg (27.0-35.0); Mean Corpuscular Volume 85.6 fL (81-100); NEUTROPHILS % (AUTO) 83.9 % (40-74); Platelet Count 190 bil/L (150-400)
[2016-08-01 19:07] LABS: BASOPHILS % (AUTO) 0.3 % (0-3); EOSINOPHILS % (AUTO) 0 % (0-5); MONOCYTES % (AUTO) 3.6 % (4-12)
[2016-08-01 19:40] LABS: TROPONIN T < 0.010 ug/L (0.0-0.011)
[2016-08-01 19:45] LABS: Magnesium 1.9 mg/dL (1.6-2.6)
--- NOTE | 2016-08-01 19:45 | ED.REPORT ---
HPI-Chest Pain Under 40 Date of Service Aug 01, 2016 ED Provider: Cyrus Bray DO Pt is a 20 year old female with a history of lupus, costochondritis, asthma, and anemia who presents to the ED complaining of constant midsternal chest pain that radiates to the back onset 2 weeks. The pain is exacerbated when laying down. Pt c/o associated chills and headache onset 4 days ago. She denies a history of blood clot, and she denies . CVD runs in her family. Nursing Notes Stated Complaint: CHEST PAIN Chief Complaint: Chest Pain-Non Cardiac Nature Nursing Notes Reviewed: Yes Allergies: Coded Allergies: No Known Allergies (Verified , 06/28/16) Scheduled Folic Acid (Folic Acid) 1 Mg Tablet 1 MG PO DAILY Hydroxychloroquine Sulfate (Hydroxychloroquine Sulfate) 200 Mg Tablet 200 MG PO DAILY Meloxicam (Meloxicam) 15 Mg Tablet 15 MG PO DAILY Methotrexate Sodium (Methotrexate) 2.5 Mg Tablet 8 TABLET PO monday take 4 in the morning and 4 in the evening Mycophenolate Mofetil (Mycophenolate Mofetil) 500 Mg Tablet 500 MG PO BID Prednisone (PredniSONE) 5 Mg Tab 5 MG PO DAILY General Time Seen by MD: 19:15 Chief Complaint Chest pain Hx Obtained From: Patient Arrived By: Walk-in Sudden in Onset?: No Onset Occurred: More than a week ago... (2 weeks) Symptom Duration: Since onset Location: : Substernal Quality: Painful Radiation: : Back Severity: Current: Moderate Severity: Maximum: Moderate Exacerbated by: Lying down Recent Healthcare: Recent doctor visit Similar Sx Previous: No Past Medical History Patient History: Family history: Cardiovascular disease Past Medical History Costochondritis Lupus Arthritis Depression Asthma Anemia Past Surgical History denies Family History CVD Smoking History Never Smoker Social History Alcohol Use: "Social" Drug Use: Denies drug use Other Social History: Local resident Ambulatory Status Independent Review of Systems Constitutional: Reports: Chills, Denies: Fever Respiratory: Denies: Shortness of breath Cardiovascular: Reports: Chest pain Musculoskeletal: Reports: Back pain Neurologic: Reports: Headache Complete sys rev & neg: except as marked. Physical Exam Initial Vital Signs Vital Signs (First) Date Time Temp Pulse Resp B/P Pulse Ox O2 Delivery O2 Flow Rate FiO2 08/01/16 18:19 36.4 111 17 139/92 98 Room Air Initial VS: Reviewed ENT: Mucous membranes moist, Conjunctiva normal, No scleral icterus Neck: Supple, Full range of motion Abdomen / GI: Soft, Non-tender Extremities: Vascular intact, Neuro intact Skin: Warm, Dry, No cyanosis Neurologic: Alert, Oriented, Nonfocal Psychiatric: Mood/affect normal, Behavior normal General/Constitutional: Awake, Alert, Cooperative, Not toxic appearing Respiratory / Chest: Atraumatic, Breath sounds NL, Breath sounds = bilat Cardiovascular: Regular rhythm, Heart sounds NL Heart Rate / Rhythm: Positive: Tachycardia Interpretation & Diagnostics ANGIOGRAPHY CT: IMPRESSION: 1. No acute pulmonary embolus. 2. Bilateral axillary adenopathy which may be associated with the patient's history of lupus. However, neoplasm and infection should also be considered in the differential. Please correlate clinically. If further characterization is warranted, axillary ultrasound is recommended. 3. Small pericardial effusion. Dictated by: Dorothy Begum M.D. on 08/01/2016 at 21:52 Lab Results Interpretation Result Diagram: 08/01/16 1855 08/01/16 1855 Test 08/01/16 18:55 08/01/16 19:47 08/01/16 19:48 08/01/16 21:25 White Blood Count 3.6th/mm3 (3.8-10.1) Red Blood Count 3.96mil/mm3 (3.90-5.20) Hemoglobin 11.4g/dL (12.0-15.6) Hematocrit 33.9% (35.0-46.0) Mean Corpuscular Volume 85.6fL (81-100) Mean Corpuscular Hemoglobin 28.8pg (27.0-35.0) Mean Corpuscular Hemoglobin Concent 33.6% (32.0-37.0) Red Cell Distribution Width 16.5% (12.3-15.4) Platelet Count 190bil/L (150-400) Neutrophils (%) (Auto) 83.9% (40-74) Lymphocytes (%) (Auto) 12.2% (14-46) Monocytes (%) (Auto) 3.6% (4-12) Eosinophils (%) (Auto) 0% (0-5) Basophils (%) (Auto) 0.3% (0-3) D-Dimer 1.34mg/L FEU (<0.50) Sodium Level 134mEq/L (134-144) Potassium Level 3.8mEq/L (3.5-5.2) Chloride Level 99mEq/L (97-108) Carbon Dioxide Level 19mmol/L (18-29) Blood Urea Nitrogen 17mg/dL (6-20) Creatinine 0.50mg/dL (0.57-1.00) Estimat Glomerular Filtration Rate 221mL/min (>59) Glucose Level 100mg/dL (60-99) Calcium Level 8.6mg/dL (8.5-10.1) Magnesium Level 1.9mg/dL (1.6-2.6) Total Bilirubin 0.5mg/dL (0.0-1.2) Aspartate Amino Transf (AST/SGOT) 17U/L (0-50) Alanine Aminotransferase (ALT/SGPT) 11U/L (0-32) Alkaline Phosphatase 65U/L (25-150) Total Protein 7.6g/dL (6.4-8.4) Albumin 3.9g/dL (3.4-5.0) Hold Pena Top Tube Received (Received) Hold Urine Received (Received) Urine Color Yellow (YELLOW) Urine Appearance Hazy (CLEAR,HAZY) Urine pH 6.0 (5.0-8.0) Urine Specific [place] 1.005 (1.003-1.035) Urine Protein Negativemg/dL (NEG,TRACE) Urine Glucose (UA) Negativemg/dL (NEGATIVE) Urine Ketones Negativemg/dL (NEGATIVE) Urine Occult Blood Trace (NEGATIVE) Urine Nitrite Negative (NEGATIVE) Urine Bilirubin Negative (NEGATIVE) Urine Urobilinogen Normalmg/dL (NORMAL) Urine Leukocyte Esterase Negative (NEGATIVE) Urine RBC 0-2/hpf (0-2) Urine WBC 0-5/hpf (0-5) Urine Epithelial Cells Moderate/hpf (NONE-MOD) Urine Crystals None seen (NONE SEEN) Urine Bacteria Few/hpf (NONE-FEW) Urine Hyaline Casts None/lpf (NONE) Urine Granular Casts None seen (NONE SEEN) Urine Waxy Casts None seen (NONE SEEN) Urine Red Blood Cell Casts None seen (NONE SEEN) Urine White Blood Cell Casts None seen (NONE SEEN) Urine Mucus None seen (None Seen) Urine Trichomonas None seen (NONE SEEN) Urine Yeast None (NONE SEEN) Urinalysis Comment None Urine Culture Reflexed Not indicated Troponin T 0.010ug/L (0.0-0.011) ECG Interpretation ECG Interpretation: Sinus tachycardia with a rate of 102 No significant changes When compared with ECG on 12/27/13 Time: 18:40 Interpreted by: ED physician X-Ray Chest Interpretation Chest Xray Interpretation: IMPRESSION: No acute cardiopulmonary findings. Dictated by: Dorothy Begum M.D. on 08/01/2016 at 20:05 View: AP & lat Interpretation / Wet Read by: Interpret - Radiologist Re-Eval/Medical Decision Med Decision/Clinical Course Pulmonary emboli ruled out with CT scan. She does have adenopathy to need follow-up. Small pericardial effusion. Troponins were negative. [place] highly unlikely. Heart scores commensurate with outpatient treatment. Consulted with her senior game developer will see her in the office. Routine opiate warnings were given. She is discharged in stable condition looking and feeling much better. Source of Hx: Old records Re-Evaluation/Progress : Time of Eval: 22:25 Re-Evaluation/Progress Note: Pt rechecked. Discussed findings. Vitals were normal. Myocardial infarction was ruled out. Informed pt of plan for discharge. Pt understands and agrees with plan for discharge. F/U instructions and RTER warnings given. All questions addressed. Consultation : Referral / Consult Name: Bolivar Nguyen MD Call Returned at: 22:27 Lamp Shade Assembler: Will see in office, Agrees with eval, Agrees with plan Counseled Regarding: Diagnosis, Lab results, Need for follow-up, When/why to return to ED Discharge & Departure Shift Change Sign-Out Response to Therapy: Improved Primary Impression: Non-cardiac chest pain Additional Impression: Axillary adenopathy Disposition: Home Discharge Condition All VS Reviewed: Yes Condition: Stable Patient Instructions: Chest Pain (ED), Lymphadenopathy (ED) Additional Instructions: There was no evidence of blood clot. The CAT scan does show that you have enlarged lymph nodes in your chest and axilla. This needs to be followed up with. I spoke with Dr. Nguyen, and he wants you to call the office in the morning to follow up. Take 1-2 Percocet every 6 hours as needed for severe pain. Do not drive or drink alcohol or consume acetaminophen while taking the Percocet. Return to the Emergency department if you have any other concerning symptoms. Referrals: Salima Cleaning (PCP) [place] Attestation Portions of this note were transcribed by Stephanie Ernandez. I, Dr. Bray personally performed the history, physical exam and medical decision-making; I reviewed and confirmed the accuracy of the information in the transcribed note. Signed by: Austin Thurman, 08/01/16 and 22:40 copies to: Salima Cleaning Todd P DO Aug 01, 2016 19:45 Stephanie Luong Aug 01, 2016 20:19
--- NOTE | 2016-08-01 20:06 | DRSVH ---
PROCEDURE: X-RAY CHEST, TWO VIEWS ([id number]) INDICATIONS: chest pain TECHNIQUE: 2 views of the chest were acquired. COMPARISON: None. FINDINGS: Surgical changes and devices: None. Lungs and pleura: No pleural effusions or pneumothorax. Lungs are clear. Mediastinum: Mediastinal contours are normal. Heart size is normal. Bones and chest wall: No suspicious bony abnormalities. Soft tissues appear unremarkable. IMPRESSION: No acute cardiopulmonary findings. Dictated by: Dorothy Begum M.D. on 08/01/2016 at 20:05 Approved by: Dorothy Begum M.D. on 08/01/2016 at 20:05
[2016-08-01 20:17] LABS: APPEARANCE,URINE HAZY (CLEAR,HAZY); COLOR,URINE YELLOW (YELLOW); OCCULT BLOOD,URINE TRACE (NEGATIVE); UROBILINOGEN,URINE NORMAL (NORMAL)
[2016-08-01] MEDS ORDERED: 0.9% Sodium Chloride 1,000 ML IV ONE (20:40)
[2016-08-01] MEDS ORDERED: HYDROmorphone 0.5 mg/0.5 mL iSecure Syringe IVPUSH ONE (20:40)
--- NOTE | 2016-08-01 21:57 | DRSVH ---
PROCEDURE: CT ANGIO CHEST PULMONARY EMBOLISM ([id number]) INDICATIONS: chest pain, tachycardia, lupus,neg xray, +ddimer TECHNIQUE: After the administration of intravenous contrast, 2 mm thick sections acquired from the pulmonary api adan to the posterior costophrenic angles. 3-dimensional maximum intensity projection (MIP) coronal a nd sagittal reformats were then acquired through the thorax. For radiation dose reduction, the follo wing was used: automated exposure control, adjustment of mA and/or kV according to patient size. COMPARISON: None. FINDINGS: Image quality: Excellent. Pulmonary arteries: Pulmonary arteries are normal in size, and demonstrate no intraluminal filling d efects to suggest central pulmonary embolism. Lungs and pleura: Lungs are clear. No pleural effusions or pneumothorax. Central and peripheral ai rways are patent. Mediastinum: Heart size is normal. There is a small pericardial effusion. No mediastinal or hilar ad enopathy. Thoracic aorta is normal in caliber and enhancement. Esophagus is normal in caliber, with out hiatal hernia. Bones and chest wall: No suspicious bony lesions. Ribs and thoracic spine appear intact throughout. Thyroid gland is unremarkable. There are bilateral enlarged axillary lymph nodes. Abdomen: Visualized upper abdominal solid organs appear normal in the early arterial phase of enhanc ement. IMPRESSION: 1. No acute pulmonary embolus. 2. Bilateral axillary adenopathy which may be associated with the patient's history of lupus. However , neoplasm and infection should also be considered in the differential. Please correlate clinically. If further characterization is warranted, axillary ultrasound is recommended. 3. Small pericardial effusion. Dictated by: Dorothy Begum M.D. on 08/01/2016 at 21:52 Approved by: Dorothy Begum M.D. on 08/01/2016 at 21:56
[2016-08-01] MEDS ORDERED: _oxyCODONE/APAP 5-325 mg Tablet PO PRN (22:20)
[2016-08-01 22:43] VITALS: BP 112/80; PULSE 68; RESP 15; O2SAT 99
== END 2016-08-01 22:44 | disposition home or self-care (01) ==
LOC: SED 18:15
DX: R07.89 Other chest pain (principal); R59.0 Localized enlarged lymph nodes; R51 Headache; R68.83 Chills (without fever); F32.9 Major depressive disorder, single episode, unspecified; J45.909 Unspecified asthma, uncomplicated; M32.9 Systemic lupus erythematosus, unspecified; D64.9 Anemia, unspecified; M94.0 Chondrocostal junction syndrome [Tietze]
CPT/HCPCS: 36415; 71020; 71275; 80053; 81000; 81025; 83735; 84484; 85025; 85378; 93005; 96361; 96374; 99285; J1170; J7030; Q9967